=== PATIENT | male | born 1960 | race Caucasian/White ===

== ENCOUNTER 2017-04-01 19:02 | Inpatient (IN) | payer OTHER ==
[~2017-04-01] VITALS: Ht 167.6 cm; Wt 104.5 kg
[~2017-04-01 19:02] MED LIST: AMOXICILLIN875 MG PO; BENADRYL ALLERG25 MG PO; CATAPRES0.1 MG PO; CLONAZEPAM1 MG PO; GABAPENTIN400 MG PO; GABAPENTIN800 MG PO; GLUCOPHAGE XR,500 MG PO; HUMALOG100 UNIT/2 SC; LEVAQUIN750 MG PO; LEVEMIR100 UNIT/2 SC; LEVEMIR100 UNIT/2 SQ; LIDODERM 5% P1 PATCH TD; LIPITOR20 MG PO; LIPOFEN50 MG PO; METFORMIN HCL500 M1 PO; METHADONE10 MG PO; MYCELEX10 MG PO; NAPROXEN500 MG PO; NOHOMEMEDS; PREDNISONE50 MG PO; SPIRIVA1 INHALATI IH; TRAMADOL HCL50 MG PO; TRAZODONE HCL50 MG PO; VALIUM5 MG PO; VENTOLIN HFA18 GM IH; ZANTAC150 MG PO; ZOFRAN ODT4 MG PO
[2017-04-01 20:05] LABS: EOSINOPHIL (%) 1.9 % (0-5); EOSINOPHIL COUNT 0.2 K/uL (0-0.3); HEMATOCRIT 42.4 % (38.0-50.0); IMMATURE GRANULOCYTE (%) 0.2 % (0.0-0.7); LYMPHOCYTE COUNT 4.7 K/uL (1.0-2.8); MCH 30.5 PG (29.0-34.0); MCHC 34.4 G/DL (30.0-36.0); MCV 88.7 FL (86-99); MONOCYTE (%) 6.2 % (3-12); MONOCYTE COUNT 0.7 K/uL (0-0.8); NEUTROPHIL (%) 47.3 % (45-76); RBC DIS.WIDTH-CV 12.8 % (11.8-14.6); RBC DIS.WIDTH-SD 41.6 % (39-53); RED BLOOD COUNT 4.78 M/uL (4.00-5.50); WHITE BLOOD COUNT 10.6 K/uL (4.1-10.2)
[2017-04-01 20:18] LABS: CHLORIDE 102 mEq/L (99-109); POTASSIUM 3.7 mEq/L (3.7-5.4); SODIUM 136 mEq/L (136-147)
[2017-04-01 20:19] LABS: MAGNESIUM 1.8 mg/dL (1.3-2.7)
[2017-04-01 20:21] LABS: GLUCOSE 158 mg/dL (70-99)
[2017-04-01 20:22] LABS: ANION GAP 14 MEQ/L (2-14)
[2017-04-01 20:23] LABS: INTER. NORMALIZED RATIO 1.1; PROTHROMBIN TIME 12.1 SEC (10.2-12.9)
[2017-04-01 20:24] LABS: ALKALINE PHOSPHATASE 129 IU/L (3-129); SERUM ETHYL ALCOHOL < 10 mg/dL
[2017-04-01 20:25] LABS: GFR ESTIMATE (CALCULATED) > 59 mL/min/; PTT 31.2 SEC (25-37)
[2017-04-01 20:26] LABS: UREA NITROGEN (BUN) 20 mg/dL (9-23)
[2017-04-01 20:27] LABS: TROP-I INTERPRETATION NEGATIVE; TROPONIN-I < 0.01 ng/mL (0.0-0.30)
[2017-04-01 20:28] LABS: LIPASE 35 U/L (1.0-51.0)
[2017-04-01 20:57] LABS: MEAN PLAT.VOLUME 11.8 uM^3 (9.0-12.4); PLAT.SUFFICIENCY DECREASED; PLATELET COUNT 143 K/uL (156-360)
[2017-04-01 21:08] LABS: ADD MIUA? NO; BILIRUBIN SMALL; BLOOD NEGATIVE; COLOR AMBER ((YELLOW)); GLUCOSE (STRIP) NEGATIVE; KETONES NEGATIVE; LEUKOCYTES NEGATIVE; NITRITE NEGATIVE; PROTEIN (STRIP) NEGATIVE; SPECIFIC GRAVITY 1.021 (1.000-1.030); UCUL ADDED? NO
[2017-04-01] MEDS ORDERED: GLUCOPHAGE500 MG PO (23:48)
[2017-04-01] MEDS ORDERED: ATARAX,VISTARIL25 MG PO (23:50)
[2017-04-01] MEDS ORDERED: OXYCODONE-APAP1 EAC6 PO (23:55)
[2017-04-02 04:55] VITALS: BP 116/59
[2017-04-02 05:32] LABS: HEMATOCRIT 37.2 % (38.0-50.0); MCH 30.9 PG (29.0-34.0); MCHC 34.1 G/DL (30.0-36.0); MCV 90.5 FL (86-99); MEAN PLAT.VOLUME 11.8 uM^3 (9.0-12.4); PLATELET COUNT 156 K/uL (156-360); RBC DIS.WIDTH-CV 13.2 % (11.8-14.6); RBC DIS.WIDTH-SD 43.8 % (39-53); RED BLOOD COUNT 4.11 M/uL (4.00-5.50); WHITE BLOOD COUNT 9.4 K/uL (4.1-10.2)
[2017-04-02 05:48] LABS: POINT-OF-CARE METER ID UU13113781
[2017-04-02 05:55] LABS: ALKALINE PHOSPHATASE 123 IU/L (3-129); ANION GAP 10 MEQ/L (2-14); CHLORIDE 103 MEQ/L (99-109); GFR ESTIMATE (CALCULATED) > 59 mL/min/; GLUCOSE 120 mg/dL (70-99); POTASSIUM 3.9 MEQ/L (3.7-5.4); SAMPLE HEMOLYSIS CHECK 0; SAMPLE ICTERIC CHECK 1; SAMPLE LIPEMIA CHECK 0; SODIUM 136 MEQ/L (136-147); TOTAL BILIRUBIN 3.7 MG/DL (0.0-1.0); UREA NITROGEN (BUN) 16 mg/dL (9-23)
[2017-04-02 06:10] LABS: AMYLASE 62 IU/L (1-118)
[2017-04-02 07:44] VITALS: BP 122/71
[2017-04-02 12:07] LABS: POINT-OF-CARE METER ID UU13113698
[2017-04-02 15:50] VITALS: BP 119/74
[2017-04-02 18:17] LABS: POINT-OF-CARE METER ID UU14174216; POINT-OF-CARE USER ID ADMMNS
[2017-04-02 19:13] VITALS: BP 102/65
[2017-04-02 23:57] LABS: POINT-OF-CARE METER ID UU14314088
[2017-04-03 00:12] VITALS: BP 106/56
[2017-04-03 04:07] VITALS: BP 113/61
[2017-04-03 05:35] LABS: EOSINOPHIL COUNT 0.2 K/uL (0-0.3); HEMATOCRIT 34.8 % (38.0-50.0); IMMATURE GRANULOCYTE (%) 0.2 % (0.0-0.7); INSTRUMENT ABS NEUTROPHIL CT 1.5 K/uL; MCH 30.8 PG (29.0-34.0); MCHC 33.3 G/DL (30.0-36.0); MCV 92.3 FL (86-99); MEAN PLAT.VOLUME 12.1 uM^3 (9.0-12.4); MONOCYTE (%) 6.9 % (3-12); MONOCYTE COUNT 0.4 K/uL (0-0.8); NEUTROPHIL (%) 23.9 % (45-76); NEUTROPHIL COUNT 1.5 K/uL (1.8-6.4); PLATELET COUNT 128 K/uL (156-360); RBC DIS.WIDTH-CV 13.3 % (11.8-14.6); RBC DIS.WIDTH-SD 45.1 % (39-53); RED BLOOD COUNT 3.77 M/uL (4.00-5.50); WHITE BLOOD COUNT 6.1 K/uL (4.1-10.2)
[2017-04-03 06:01] LABS: ALKALINE PHOSPHATASE 122 IU/L (3-129); ANION GAP 8 MEQ/L (2-14); CHLORIDE 105 MEQ/L (99-109); GFR ESTIMATE (CALCULATED) > 59 mL/min/; GLUCOSE 160 mg/dL (70-99); POTASSIUM 3.9 MEQ/L (3.7-5.4); SAMPLE HEMOLYSIS CHECK 0; SAMPLE ICTERIC CHECK 0; SAMPLE LIPEMIA CHECK 0; SODIUM 137 MEQ/L (136-147); TOTAL BILIRUBIN 1.6 MG/DL (0.0-1.0); UREA NITROGEN (BUN) 17 mg/dL (9-23)
[2017-04-03 06:01] LABS: POINT-OF-CARE METER ID UU14314088
[2017-04-03 07:17] VITALS: BP 124/64
[2017-04-03 11:04] VITALS: BP 123/67
[2017-04-03 11:23] LABS: POINT-OF-CARE METER ID UU13113698
[2017-04-03 14:15] LABS: POINT-OF-CARE METER ID UU13113698
[2017-04-03 17:19] LABS: POINT-OF-CARE METER ID UU13113675
[2017-04-03 18:58] LABS: POINT-OF-CARE METER ID UU13113698
[2017-04-03 19:45] VITALS: BP 113/61
[2017-04-04 00:08] VITALS: BP 126/59
[2017-04-04 00:25] LABS: POINT-OF-CARE METER ID UU14174216
[2017-04-04 05:48] LABS: POINT-OF-CARE METER ID UU14174216
[2017-04-04 07:13] VITALS: BP 128/65
[2017-04-04 09:01] LABS: EOSINOPHIL (%) 1.7 % (0-5); EOSINOPHIL COUNT 0.1 K/uL (0-0.3); HEMATOCRIT 35.3 % (38.0-50.0); IMMATURE GRANULOCYTE (%) 0.3 % (0.0-0.7); INSTRUMENT ABS NEUTROPHIL CT 3.3 K/uL; LYMPHOCYTE COUNT 2.8 K/uL (1.0-2.8); MCH 30.5 PG (29.0-34.0); MCHC 33.4 G/DL (30.0-36.0); MCV 91.2 FL (86-99); MEAN PLAT.VOLUME 11.6 uM^3 (9.0-12.4); MONOCYTE (%) 5.8 % (3-12); MONOCYTE COUNT 0.4 K/uL (0-0.8); NEUTROPHIL (%) 49.8 % (45-76); NEUTROPHIL COUNT 3.3 K/uL (1.8-6.4); PLATELET COUNT 120 K/uL (156-360); RBC DIS.WIDTH-SD 43.1 % (39-53); RED BLOOD COUNT 3.87 M/uL (4.00-5.50); WHITE BLOOD COUNT 6.6 K/uL (4.1-10.2)
[2017-04-04 09:29] LABS: ALKALINE PHOSPHATASE 115 IU/L (3-129); ANION GAP 6 MEQ/L (2-14); CHLORIDE 107 MEQ/L (99-109); GFR ESTIMATE (CALCULATED) > 59 mL/min/; GLUCOSE 120 mg/dL (70-99); SAMPLE HEMOLYSIS CHECK 0; SAMPLE ICTERIC CHECK 0; SAMPLE LIPEMIA CHECK 0; SODIUM 137 MEQ/L (136-147); UREA NITROGEN (BUN) 15 mg/dL (9-23)
[2017-04-04 09:31] LABS: TOTAL BILIRUBIN 1.2 MG/DL (0.0-1.0)
[2017-04-04 11:46] LABS: POINT-OF-CARE METER ID UU13113698
[2017-04-04 18:38] LABS: POINT-OF-CARE METER ID UU14314088
[2017-04-04 19:24] VITALS: BP 130/68
[2017-04-05 00:21] LABS: POINT-OF-CARE METER ID UU13113698
[2017-04-05 00:30] VITALS: BP 123/60
[2017-04-05 04:18] VITALS: BP 113/57
[2017-04-05 04:58] LABS: EOSINOPHIL (%) 1.9 % (0-5); EOSINOPHIL COUNT 0.1 K/uL (0-0.3); HEMATOCRIT 35.2 % (38.0-50.0); IMMATURE GRANULOCYTE (%) 0.1 % (0.0-0.7); INSTRUMENT ABS NEUTROPHIL CT 3.4 K/uL; LYMPHOCYTE COUNT 3.2 K/uL (1.0-2.8); MCHC 34.1 G/DL (30.0-36.0); MEAN PLAT.VOLUME 11.3 uM^3 (9.0-12.4); MONOCYTE (%) 5.7 % (3-12); MONOCYTE COUNT 0.4 K/uL (0-0.8); NEUTROPHIL (%) 47.4 % (45-76); NEUTROPHIL COUNT 3.4 K/uL (1.8-6.4); PLATELET COUNT 122 K/uL (156-360); RBC DIS.WIDTH-SD 42.7 % (39-53); RED BLOOD COUNT 3.87 M/uL (4.00-5.50); WHITE BLOOD COUNT 7.2 K/uL (4.1-10.2)
[2017-04-05 05:15] LABS: CHLORIDE 107 mEq/L (99-109); POTASSIUM 3.5 mEq/L (3.7-5.4); SODIUM 136 mEq/L (136-147)
[2017-04-05 05:17] LABS: GLUCOSE 139 mg/dL (70-99)
[2017-04-05 05:18] LABS: ANION GAP 6 MEQ/L (2-14)
[2017-04-05 05:21] LABS: ALKALINE PHOSPHATASE 121 IU/L (3-129); GFR ESTIMATE (CALCULATED) > 59 mL/min/
[2017-04-05 05:22] LABS: UREA NITROGEN (BUN) 9 mg/dL (9-23)
[2017-04-05 05:24] LABS: LIPASE 666 U/L (1.0-51.0)
[2017-04-05 06:01] LABS: POINT-OF-CARE METER ID UU13113698
[2017-04-05 08:00] VITALS: BP 111/58
[2017-04-05 11:36] LABS: POINT-OF-CARE METER ID UU14314088
[2017-04-05 13:03] VITALS: BP 108/52
[2017-04-05 16:24] LABS: POINT-OF-CARE METER ID UU14314088
[2017-04-05 16:37] VITALS: BP 110/56
[2017-04-05 19:49] VITALS: BP 122/56
[2017-04-05 21:31] LABS: POINT-OF-CARE METER ID UU14314088
[2017-04-06 01:17] VITALS: BP 132/78
[2017-04-06 05:35] LABS: EOSINOPHIL (%) 3.2 % (0-5); EOSINOPHIL COUNT 0.2 K/uL (0-0.3); HEMATOCRIT 33.2 % (38.0-50.0); IMMATURE GRANULOCYTE (%) 0.3 % (0.0-0.7); INSTRUMENT ABS NEUTROPHIL CT 2.8 K/uL; MCH 31.8 PG (29.0-34.0); MCHC 34.3 G/DL (30.0-36.0); MCV 92.5 FL (86-99); MEAN PLAT.VOLUME 12.8 uM^3 (9.0-12.4); MONOCYTE (%) 7.1 % (3-12); MONOCYTE COUNT 0.5 K/uL (0-0.8); NEUTROPHIL (%) 36.3 % (45-76); NEUTROPHIL COUNT 2.8 K/uL (1.8-6.4); PLATELET COUNT 117 K/uL (156-360); RBC DIS.WIDTH-CV 13.1 % (11.8-14.6); RBC DIS.WIDTH-SD 44.3 % (39-53); RED BLOOD COUNT 3.59 M/uL (4.00-5.50); WHITE BLOOD COUNT 7.6 K/uL (4.1-10.2)
[2017-04-06 06:13] LABS: ALKALINE PHOSPHATASE 96 IU/L (3-129); ANION GAP 8 MEQ/L (2-14); CHLORIDE 104 MEQ/L (99-109); DIRECT BILIRUBIN 0.2 mg/dL (0.0-0.3); GFR ESTIMATE (CALCULATED) > 59 mL/min/; GLUCOSE 144 mg/dL (70-99); LIPASE 100 U/L (1.0-51.0); POTASSIUM 3.4 MEQ/L (3.7-5.4); SAMPLE HEMOLYSIS CHECK 0; SAMPLE ICTERIC CHECK 0; SAMPLE LIPEMIA CHECK 0; SODIUM 136 MEQ/L (136-147); UREA NITROGEN (BUN) 6 mg/dL (9-23)
[2017-04-06 06:17] LABS: TOTAL BILIRUBIN 0.8 MG/DL (0.0-1.0)
[2017-04-06 07:03] LABS: POINT-OF-CARE METER ID UU13113781
[2017-04-06 09:00] VITALS: BP 121/70
[2017-04-06 12:29] LABS: POINT-OF-CARE METER ID UU13113781
[2017-04-06 13:27] VITALS: BP 110/68
[2017-04-06 14:33] VITALS: BP 127/67
[2017-04-06 16:43] LABS: POINT-OF-CARE METER ID UU14162508
[2017-04-06 16:46] VITALS: BP 129/68
[2017-04-06 19:34] VITALS: BP 145/68
[2017-04-06 22:05] LABS: POINT-OF-CARE METER ID UU14162508
[2017-04-07 00:06] VITALS: BP 124/69
[2017-04-07 03:55] VITALS: BP 130/72
[2017-04-07 06:27] LABS: POINT-OF-CARE METER ID UU14162508
[2017-04-07 07:00] LABS: EOSINOPHIL (%) 3.4 % (0-5); EOSINOPHIL COUNT 0.2 K/uL (0-0.3); HEMATOCRIT 33.8 % (38.0-50.0); IMMATURE GRANULOCYTE (%) 0.2 % (0.0-0.7); LYMPHOCYTE COUNT 3.3 K/uL (1.0-2.8); MCH 30.9 PG (29.0-34.0); MCHC 33.4 G/DL (30.0-36.0); MCV 92.3 FL (86-99); MEAN PLAT.VOLUME 11.7 uM^3 (9.0-12.4); MONOCYTE (%) 8.5 % (3-12); MONOCYTE COUNT 0.5 K/uL (0-0.8); NEUTROPHIL (%) 32.9 % (45-76); PLATELET COUNT 128 K/uL (156-360); RBC DIS.WIDTH-CV 12.9 % (11.8-14.6); RBC DIS.WIDTH-SD 43.8 % (39-53); RED BLOOD COUNT 3.66 M/uL (4.00-5.50); WHITE BLOOD COUNT 6.1 K/uL (4.1-10.2)
[2017-04-07 07:30] LABS: ALKALINE PHOSPHATASE 93 IU/L (3-129); ANION GAP 7 MEQ/L (2-14); CHLORIDE 109 MEQ/L (99-109); DIRECT BILIRUBIN 0.2 mg/dL (0.0-0.3); GFR ESTIMATE (CALCULATED) > 59 mL/min/; GLUCOSE 142 mg/dL (70-99); LIPASE 82 U/L (1.0-51.0); POTASSIUM 3.9 MEQ/L (3.7-5.4); SAMPLE HEMOLYSIS CHECK 0; SAMPLE ICTERIC CHECK 0; SAMPLE LIPEMIA CHECK 0; SODIUM 140 MEQ/L (136-147); UREA NITROGEN (BUN) 6 mg/dL (9-23)
[2017-04-07 07:50] VITALS: BP 139/72
[2017-04-07 07:50] LABS: TOTAL BILIRUBIN 0.6 MG/DL (0.0-1.0)
[2017-04-07 11:15] VITALS: BP 106/69
[2017-04-07 11:29] LABS: POINT-OF-CARE METER ID UU14162508
[2017-04-07 15:45] VITALS: BP 119/62
[2017-04-07 16:10] LABS: POINT-OF-CARE METER ID UU14162508
[2017-04-07 20:37] VITALS: BP 133/75
[2017-04-07 21:22] LABS: POINT-OF-CARE METER ID UU14162508
[2017-04-08] VITALS (7 sets, daily range): BP systolic 122–136; BP diastolic 70–75
[2017-04-08 06:47] LABS: POINT-OF-CARE METER ID UU14162508
[2017-04-08 11:49] LABS: POINT-OF-CARE METER ID UU14162508
[2017-04-08 13:19] LABS: METH RESISTANT S AUREUS PCR NEGATIVE (NEGATIVE)
[2017-04-08 13:20] LABS: PROBE CHECK PASS; SPECIMEN PROCESSING CONTROL PASS
[2017-04-08 17:01] LABS: POINT-OF-CARE METER ID UU14162508
[2017-04-08 20:04] LABS: POINT-OF-CARE METER ID UU13113675; POINT-OF-CARE USER ID 515036437
[2017-04-08 21:18] LABS: POINT-OF-CARE METER ID UU14162508
[2017-04-09 04:30] VITALS: BP 126/72
[2017-04-09 07:08] LABS: HEMATOCRIT 33.3 % (38.0-50.0); MCH 31.4 PG (29.0-34.0); MCHC 33.6 G/DL (30.0-36.0); MCV 93.3 FL (86-99); MEAN PLAT.VOLUME 12.4 uM^3 (9.0-12.4); PLATELET COUNT 153 K/uL (156-360); RBC DIS.WIDTH-SD 44.6 % (39-53); RED BLOOD COUNT 3.57 M/uL (4.00-5.50); WHITE BLOOD COUNT 6.4 K/uL (4.1-10.2)
[2017-04-09 07:11] LABS: POINT-OF-CARE METER ID UU14162508
[2017-04-09 07:20] VITALS: BP 131/69
[2017-04-09 07:40] LABS: ALKALINE PHOSPHATASE 82 IU/L (3-129); ANION GAP 8 MEQ/L (2-14); CHLORIDE 104 MEQ/L (99-109); GFR ESTIMATE (CALCULATED) > 59 mL/min/; GLUCOSE 87 mg/dL (70-99); POTASSIUM 4.5 MEQ/L (3.7-5.4); SAMPLE HEMOLYSIS CHECK 0; SAMPLE ICTERIC CHECK 0; SAMPLE LIPEMIA CHECK 0; SODIUM 137 MEQ/L (136-147); TOTAL BILIRUBIN 0.7 MG/DL (0.0-1.0); UREA NITROGEN (BUN) 8 mg/dL (9-23)
[2017-04-09 11:13] LABS: POINT-OF-CARE METER ID UU14208750
[2017-04-09 15:10] VITALS: BP 139/67
[2017-04-09 16:01] LABS: TROP-I INTERPRETATION NEGATIVE; TROPONIN-I < 0.01 ng/mL (0.0-0.30)
[2017-04-09 17:02] LABS: POINT-OF-CARE METER ID UU14314084
[2017-04-09 20:30] VITALS: BP 146/67
[2017-04-09 21:34] LABS: POINT-OF-CARE METER ID UU14208750
[2017-04-09 23:20] VITALS: BP 157/84
[2017-04-10 03:15] VITALS: BP 145/70
[2017-04-10 07:03] LABS: POINT-OF-CARE METER ID UU14208750
[2017-04-10 07:20] LABS: ANION GAP 11 MEQ/L (2-14); CHLORIDE 102 MEQ/L (99-109); GFR ESTIMATE (CALCULATED) > 59 mL/min/; GLUCOSE 118 mg/dL (70-99); POTASSIUM 4.2 MEQ/L (3.7-5.4); SAMPLE HEMOLYSIS CHECK 0; SAMPLE ICTERIC CHECK 0; SAMPLE LIPEMIA CHECK 0; SODIUM 138 MEQ/L (136-147); UREA NITROGEN (BUN) 8 mg/dL (9-23)
[2017-04-10 07:54] VITALS: BP 130/65
[2017-04-10 11:56] LABS: POINT-OF-CARE METER ID UU14314084; POINT-OF-CARE USER ID PUTDRM
[2017-04-10 15:30] VITALS: BP 90/58
[2017-04-10 16:23] LABS: POINT-OF-CARE METER ID UU14208750; POINT-OF-CARE USER ID PUTDRM
[2017-04-10 22:10] LABS: POINT-OF-CARE METER ID UU14314084
[2017-04-11 00:03] VITALS: BP 139/77
[2017-04-11 07:57] VITALS: BP 138/70
[2017-04-11 11:40] LABS: POINT-OF-CARE METER ID UU14208750
[2017-04-11 16:10] VITALS: BP 84/51
[2017-04-11 17:09] LABS: POINT-OF-CARE METER ID UU14208750
[2017-04-11 22:30] LABS: POINT-OF-CARE METER ID UU14314084
[2017-04-11 23:36] VITALS: BP 108/69
[2017-04-12 06:18] LABS: POINT-OF-CARE METER ID UU14162508
[2017-04-12 07:45] VITALS: BP 102/55
[2017-04-12 08:14] LABS: EOSINOPHIL (%) 3.6 % (0-5); EOSINOPHIL COUNT 0.3 K/uL (0-0.3); HEMATOCRIT 33.4 % (38.0-50.0); IMMATURE GRANULOCYTE (%) 0.1 % (0.0-0.7); LYMPHOCYTE COUNT 3.6 K/uL (1.0-2.8); MCH 30.8 PG (29.0-34.0); MCHC 33.5 G/DL (30.0-36.0); MCV 91.8 FL (86-99); MEAN PLAT.VOLUME 11.2 uM^3 (9.0-12.4); MONOCYTE (%) 7.9 % (3-12); MONOCYTE COUNT 0.6 K/uL (0-0.8); NEUTROPHIL (%) 39.8 % (45-76); PLATELET COUNT 176 K/uL (156-360); RBC DIS.WIDTH-CV 12.6 % (11.8-14.6); RBC DIS.WIDTH-SD 42.9 % (39-53); RED BLOOD COUNT 3.64 M/uL (4.00-5.50); WHITE BLOOD COUNT 7.5 K/uL (4.1-10.2)
[2017-04-12 09:02] LABS: ALKALINE PHOSPHATASE 68 IU/L (3-129); ANION GAP 9 MEQ/L (2-14); CHLORIDE 100 MEQ/L (99-109); GFR ESTIMATE (CALCULATED) > 59 mL/min/; GLUCOSE 126 mg/dL (70-99); POTASSIUM 3.7 MEQ/L (3.7-5.4); SAMPLE HEMOLYSIS CHECK 0; SAMPLE ICTERIC CHECK 0; SAMPLE LIPEMIA CHECK 0; SODIUM 137 MEQ/L (136-147); TOTAL BILIRUBIN 0.4 MG/DL (0.0-1.0); UREA NITROGEN (BUN) 15 mg/dL (9-23)
[2017-04-12 11:27] VITALS: BP 115/66
[2017-04-12 11:50] LABS: POINT-OF-CARE METER ID UU14208750
[2017-04-12] MEDS ORDERED: NICOTINE PATCH1 EAC2 TD (12:48)
[2017-04-12] MEDS ORDERED: BUPROPION HCL150 M2 PO (12:48)
[2017-04-12] MEDS ORDERED: DOCUSATE SODIU100 MG PO (12:48)
[2017-04-12] MEDS ORDERED: OXYCODONE-APAP1 EACH PO (12:48)
[2017-04-12] MEDS ORDERED: METHADONE10 MG PO (12:48)
[2017-04-12] MEDS ORDERED: BISAC-EVAC10 MG PR (12:48)
== END 2017-04-12 14:49 | disposition home or self-care (01) | DRG 417 ==
LOC: EME 19:02 → ENRESERV 04-02 00:30 → 4EAST 04-02 00:30 → EDOF 04-02 00:30 → ENRESERV 04-02 02:03 → 4EAST 04-02 04:34 → ENRESERV 04-06 12:06 → 2EAST 04-06 14:09
PROVIDERS: Emergency Medicine; Hospitalist; Internal Medicine; Internal Medicine Gastroenterology; Specialist; Thoracic Surgery (Cardiothoracic Vascular Surgery)
DX: K80.70 Calculus of gallbladder and bile duct without cholecystitis without obstruction (principal); K91.89 Other postprocedural complications and disorders of digestive system; Y84.8 Other medical procedures as the cause of abnormal reaction of the patient, or of later complication, without mention of misadventure at the time of the procedure; K85.80 Other acute pancreatitis without necrosis or infection; D69.6 Thrombocytopenia, unspecified; J45.909 Unspecified asthma, uncomplicated; G47.30 Sleep apnea, unspecified; G43.909 Migraine, unspecified, not intractable, without status migrainosus; K21.9 Gastro-esophageal reflux disease without esophagitis; M81.0 Age-related osteoporosis without current pathological fracture; E11.9 Type 2 diabetes mellitus without complications; E78.5 Hyperlipidemia, unspecified; G89.4 Chronic pain syndrome; M15.9 Polyosteoarthritis, unspecified; E66.9 Obesity, unspecified; F17.210 Nicotine dependence, cigarettes, uncomplicated; Z68.37 Body mass index [BMI] 37.0-37.9, adult; Z88.2 Allergy status to sulfonamides; Z88.1 Allergy status to other antibiotic agents; Z79.891 Long term (current) use of opiate analgesic; Z79.4 Long term (current) use of insulin
CPT/HCPCS: 74000; 74177; 74181; 74330; 80048; 80053; 80076; 81003; 82150; 82948; 83690; 83735; 84484; 85025; 85027; 85610; 85730; 87081; 87641; 88304; 88305; 93005; 94640; 94799; 99202; 99281; 99285; C1757; C1769; C2625; C9113; G0480; J0131; J0330; J1170; J1644; J1650; J1815; J1885; J2250; J2270; J2405; J2543; J2710; J2765; J3010; J7030; J7042; J7050; J7120; Q0177

== ENCOUNTER 2017-05-11 19:07 | Emergency (ER) | payer OTHER ==
[~2017-05-11] VITALS: Ht 167.6 cm; Wt 94.6 kg
[~2017-05-11 19:07] MED LIST changes: +ATARAX,VISTARIL25 MG PO; +BISAC-EVAC10 MG PR; +BUPROPION HCL150 M2 PO; +DOCUSATE SODIU100 MG PO; +GLUCOPHAGE500 MG PO; +NICOTINE PATCH1 EAC2 TD; +OXYCODONE-APAP1 EAC6 PO; +OXYCODONE-APAP1 EACH PO
[2017-05-11 19:51] LABS: MCH 30.3 PG (29.0-34.0); MCHC 34.6 G/DL (30.0-36.0); PLATELET COUNT 169 K/uL (156-360); RBC DIS.WIDTH-CV 12.5 % (11.8-14.6); RBC DIS.WIDTH-SD 39.8 % (39-53)
[2017-05-11 19:56] LABS: CHLORIDE 106 mEq/L (99-109); POTASSIUM 3.9 mEq/L (3.7-5.4); SODIUM 138 mEq/L (136-147)
[2017-05-11 19:58] LABS: GLUCOSE 142 mg/dL (70-99)
[2017-05-11 19:59] LABS: MCV 87.6 FL (86-99); RED BLOOD COUNT 4.68 M/uL (4.00-5.50)
[2017-05-11 20:00] LABS: ANION GAP 13 MEQ/L (2-14); TOTAL BILIRUBIN 0.5 mg/dL (0.0-1.0)
[2017-05-11 20:02] LABS: ALKALINE PHOSPHATASE 96 IU/L (3-129); GFR ESTIMATE (CALCULATED) > 59 mL/min/
[2017-05-11 20:03] LABS: UREA NITROGEN (BUN) 18 mg/dL (9-23)
[2017-05-11 20:04] LABS: DIRECT BILIRUBIN 0.2 mg/dL (0.0-0.3)
[2017-05-11 20:06] LABS: LIPASE 30 U/L (1.0-51.0)
[2017-05-11 20:56] VITALS: BP 129/81
[2017-05-12] MEDS ORDERED: OXYCODONE-APAP1 EAC6 PO (16:00)
[2017-05-12] MEDS ORDERED: NARCAN4 MG NS (16:02)
[2017-05-12] MEDS ORDERED: METHADONE10 MG PO (16:05)
[2017-05-12] MEDS ORDERED: METFORMIN HCL500 MG PO (16:05)
== END 2017-05-11 21:00 | disposition home or self-care (01) ==
LOC: EME 19:07
PROVIDERS: Emergency Medicine
DX: R10.84 Generalized abdominal pain (principal); G89.29 Other chronic pain; Z90.49 Acquired absence of other specified parts of digestive tract; Z98.890 Other specified postprocedural states; Z87.442 Personal history of urinary calculi; J45.909 Unspecified asthma, uncomplicated; E11.9 Type 2 diabetes mellitus without complications; K21.9 Gastro-esophageal reflux disease without esophagitis; F41.9 Anxiety disorder, unspecified; F17.200 Nicotine dependence, unspecified, uncomplicated; Z88.2 Allergy status to sulfonamides; Z88.1 Allergy status to other antibiotic agents
CPT/HCPCS: 74176; 80048; 80076; 81003; 83690; 85027; 87086; 99281; 99285; J7050

== ENCOUNTER 2017-05-12 08:46 | Observation (INO) | payer OTHER ==
[~2017-05-12] VITALS: Ht 167.6 cm; Wt 94.6 kg
[2017-05-12 10:33] LABS: HEMATOCRIT 38.3 % (38.0-50.0); MCH 30.3 PG (29.0-34.0); MCHC 34.2 G/DL (30.0-36.0); MCV 88.5 FL (86-99); MEAN PLAT.VOLUME 11.8 uM^3 (9.0-12.4); PLATELET COUNT 140 K/uL (156-360); RBC DIS.WIDTH-CV 12.5 % (11.8-14.6); RBC DIS.WIDTH-SD 40.6 % (39-53); RED BLOOD COUNT 4.33 M/uL (4.00-5.50); WHITE BLOOD COUNT 7.1 K/uL (4.1-10.2)
[2017-05-12 10:43] LABS: CHLORIDE 110 mEq/L (99-109); POTASSIUM 3.9 mEq/L (3.7-5.4); SODIUM 139 mEq/L (136-147)
[2017-05-12 10:45] LABS: GLUCOSE 156 mg/dL (70-99)
[2017-05-12 10:46] LABS: ANION GAP 9 MEQ/L (2-14)
[2017-05-12 10:47] LABS: TOTAL BILIRUBIN 0.4 mg/dL (0.0-1.0)
[2017-05-12 10:48] LABS: ALKALINE PHOSPHATASE 79 IU/L (3-129)
[2017-05-12 10:49] LABS: GFR ESTIMATE (CALCULATED) > 59 mL/min/
[2017-05-12 10:50] LABS: UREA NITROGEN (BUN) 19 mg/dL (9-23)
[2017-05-12 10:52] LABS: LIPASE 29 U/L (1.0-51.0)
[2017-05-12 11:03] LABS: ADD MIUA? YES; BILIRUBIN NEGATIVE; BLOOD NEGATIVE; COLOR YELLOW ((YELLOW)); GLUCOSE (STRIP) NEGATIVE; KETONES 5; LEUKOCYTES TRACE; NITRITE NEGATIVE; PROTEIN (STRIP) 30; SPECIFIC GRAVITY 1.027 (1.000-1.030)
[2017-05-12 11:08] LABS: BACTERIA RARE /HPF; CALCIUM OXALATE CRYSTALS 2+ /HPF; EPITHELIAL CELLS 1+ /HPF; MUCUS 2+ /LPF; RED BLOOD CELLS 0-5 /HPF (0-5)
[2017-05-12] MEDS ORDERED: OXYCODONE-APAP1 EAC6 PO (16:00)
[2017-05-12] MEDS ORDERED: NARCAN4 MG NS (16:02)
[2017-05-12] MEDS ORDERED: METHADONE10 MG PO (16:05)
[2017-05-12] MEDS ORDERED: METFORMIN HCL500 MG PO (16:05)
[2017-05-12 16:49] VITALS: BP 158/78
[2017-05-12 19:48] VITALS: BP 144/86
[2017-05-12 22:39] LABS: POINT-OF-CARE METER ID UU13113700
[2017-05-13] VITALS (7 sets, daily range): BP systolic 113–143; BP diastolic 58–91
[2017-05-13 03:11] LABS: ADD MIUA? NO; BILIRUBIN NEGATIVE; BLOOD NEGATIVE; COLOR YELLOW ((YELLOW)); GLUCOSE (STRIP) NEGATIVE; KETONES 5; LEUKOCYTES NEGATIVE; NITRITE NEGATIVE; PROTEIN (STRIP) NEGATIVE; SPECIFIC GRAVITY 1.021 (1.000-1.030); UCUL ADDED? NO
[2017-05-13 03:36] LABS: AMPHETAMINES QUANT VALUE 0 NG/ML; BARBITUATES QUANT VALUE 0 NG/ML; BENZODIAZEPINES, URINE SCREEN POSITIVE (200 ng/mL); MARIJUANA QUANT VALUE 0 NG/ML; PHENCYCLIDINE QUANT VALUE 0 NG/ML
[2017-05-13 08:43] LABS: POINT-OF-CARE METER ID UU13113700
[2017-05-13 13:23] LABS: POINT-OF-CARE METER ID UU13113831
[2017-05-13 17:32] LABS: POINT-OF-CARE METER ID UU13113700
[2017-05-13 21:55] LABS: POINT-OF-CARE METER ID UU13113700
[2017-05-14] VITALS: BP 132/59
[2017-05-14 05:12] LABS: EOSINOPHIL (%) 0.8 % (0-5); HEMATOCRIT 33.4 % (38.0-50.0); INSTRUMENT ABS NEUTROPHIL CT 1.7 K/uL; LYMPHOCYTE COUNT 3.2 K/uL (1.0-2.8); MCH 30.7 PG (29.0-34.0); MCHC 34.1 G/DL (30.0-36.0); MEAN PLAT.VOLUME 11.9 uM^3 (9.0-12.4); MONOCYTE (%) 6.4 % (3-12); MONOCYTE COUNT 0.3 K/uL (0-0.8); NEUTROPHIL (%) 32.4 % (45-76); NEUTROPHIL COUNT 1.7 K/uL (1.8-6.4); PLATELET COUNT 104 K/uL (156-360); RBC DIS.WIDTH-CV 12.4 % (11.8-14.6); RBC DIS.WIDTH-SD 40.9 % (39-53); RED BLOOD COUNT 3.71 M/uL (4.00-5.50); WHITE BLOOD COUNT 5.3 K/uL (4.1-10.2)
[2017-05-14 05:45] LABS: ANION GAP 5 MEQ/L (2-14); CHLORIDE 107 MEQ/L (99-109); GFR ESTIMATE (CALCULATED) > 59 mL/min/; POTASSIUM 3.6 MEQ/L (3.7-5.4); SAMPLE HEMOLYSIS CHECK 0; SAMPLE ICTERIC CHECK 0; SAMPLE LIPEMIA CHECK 0; SODIUM 139 MEQ/L (136-147); UREA NITROGEN (BUN) 23 mg/dL (9-23)
[2017-05-14 05:46] LABS: GLUCOSE 81 mg/dL (70-99)
[2017-05-14 07:35] VITALS: BP 132/75
[2017-05-14] MEDS ORDERED: CITALOPRAM HBR10 MG PO (09:53)
== END 2017-05-14 11:06 | disposition home or self-care (01) ==
LOC: EME 08:46 → EDOF 13:54 → 5WEST 13:54 → EDOF 13:54 → ENRESERV 13:56 → 5WEST 16:28 → ENPENDDIS 05-14 → 5WEST 05-14 11:06
PROVIDERS: Hospitalist; Internal Medicine; Physician Assistant
DX: R10.84 Generalized abdominal pain (principal); R11.0 Nausea; E11.40 Type 2 diabetes mellitus with diabetic neuropathy, unspecified; D69.6 Thrombocytopenia, unspecified; E87.6 Hypokalemia; E66.9 Obesity, unspecified; Z68.33 Body mass index [BMI] 33.0-33.9, adult; Z66 Do not resuscitate; F41.1 Generalized anxiety disorder; F32.9 Major depressive disorder, single episode, unspecified; F44.9 Dissociative and conversion disorder, unspecified; G25.89 Other specified extrapyramidal and movement disorders; G89.29 Other chronic pain; Z79.891 Long term (current) use of opiate analgesic; Z79.84 Long term (current) use of oral hypoglycemic drugs; R47.81 Slurred speech; R30.0 Dysuria; J45.909 Unspecified asthma, uncomplicated; K21.9 Gastro-esophageal reflux disease without esophagitis; Z87.442 Personal history of urinary calculi; G47.33 Obstructive sleep apnea (adult) (pediatric); Z90.49 Acquired absence of other specified parts of digestive tract; F17.210 Nicotine dependence, cigarettes, uncomplicated; Z82.49 Family history of ischemic heart disease and other diseases of the circulatory system; Z82.3 Family history of stroke; Z88.8 Allergy status to other drugs, medicaments and biological substances
CPT/HCPCS: 70450; 70551; 80048; 80053; 80306 90; 81003; 82948; 83690; 84425 90; 85025; 85027; 87086; 93880; 94640; 94640 76; 99281; 99284; G0378; G8978 GP CM; G8979 CJ; G8980 GP CM; G8987 GO CM; G8988 GO CJ; G8989 GO CM; J0696; J1200; J1650; J1885; J2270; J2405; J3411; J7030; J7050; J7120